=== PATIENT | female | born 1955 | race African-American/Black ===

== ENCOUNTER 2017-02-03 23:12 | Emergency (ER) | payer OTHER ==
--- NOTE | ~2017-02-03 | EKG ---
PATIENT: REX MORENO UNIT #: [id number] Ventricular Rate: 85 BPM Atrial Rate: 85 BPM P-R Interval: 168 ms QRS Duration: 76 ms Q-T Interval: 374 ms QTC Calculation(Bezet): 445 ms P Marion: 47 degrees Calculated R Marion: -10 degrees Calculated T Marion: 53 degrees Diagnosis Line: Normal sinus rhythm Diagnosis Line: Moderate voltage criteria for LVH, may be normal Diagnosis Line: variant Diagnosis Line: Otherwise normal ECG Diagnosis Line: When compared with ECG of 08-MAR-2013 06:11, Diagnosis Line: No significant change was found Diagnosis Line: Confirmed by CRYSTAL HDZ MD ([id number]) on 02/05/2017 Diagnosis Line: 4:04:51 PM INTERPRETING MD: WILDER HERNANDEZ
--- NOTE | ~2017-02-03 | CT71 ---
[facility] A Service of [facility] RADIOLOGY TEXT RESULTS PATIENT: REX MORENO LOCATION: [facility] : 59 UNIT #: [id number] AGE: [address]: Alfie Lamar MD SEX: F ORDER DR: [id number] [facility] [address] [place], [place] [address] [id number] MR#: [id number] Acc #: [id number] NAME: REX MORENO : 1955 SEX: F STUDY DATE/TIME: 02/03/2017 23:37 UNIT: [facility] ROOM: STUDY DESCRIPTION: CT Head Wo Contrast Attending Physician: Alfie Lamar M.D. Ordering Physician: Alfie Lamar M.D. Primary Care Physician: Killian Nair M.D. MEDICAL IMAGING REPORT This report is preliminary unless electronic signature is present EXAM Noncontrast head CT. HISTORY Headaches, left-sided facial pain since this morning, blurred vision. COMPARISON Head CT, 10/06/2015. TECHNIQUE This CT exam was performed with one or more of the following radiation dose reduction techniques: automatic exposure control, adjustment of mA and/or kV according to patient size, and iterative reconstruction. FINDINGS Axial noncontrast imaging of the brain demonstrates the brain parenchyma to be normal. No evidence of mass, mass effect or midline shift. No hemorrhage or abnormal extraaxial fluid collections. Intracranial vascular calcifications are noted within the cavernous carotids. Bony calvaria, skull base, mastoid sinuses unremarkable. IMPRESSION No acute intracranial abnormality identified. No change from head CT 10/06/2015. Dictated by... Arabella Campos M.D. THIS IS AN ELECTRONICALLY VERIFIED REPORT Arabella Campos M.D. at 02/04/2017 10:06 PM LIT/yasmin TD: 02/04/2017 10:57 [facility] A Service [facility] RADIOLOGY TEXT RESULTS PATIENT: REX MORENO LOCATION: [facility] : 59 UNIT #: [id number] AGE: [address]: Alfie Lamar MD SEX: F ORDER DR: JOB #: [id number] MEDICAL IMAGING REPORT Page 1 of 1 COPY
[~2017-02-03 23:12] MED LIST: ACETAMINOPHEN PR; AMOXICILLIN875 MG PO; AURALGAN EAR DR14 ML OT; BACLOFEN10 MG PO; COREG12.5 MG PO; COZAAR100 MG PO; FEMHRT 1/5 TABL1 TAB PO; FERROUS SULFATE PO; HYDROCHLOROTHIA25 MG PO; HYDROXYZINE HCL25 M1 PO; IRON PILLS PO; K-DUR20 ME1 PO; NITROGLYCERIN0.4 MG SL; NORVASC PO; PLAVIX PO; ROBITUSSIN100 MG/51 PO; TAMIFLU75 M1 PO; VOLTAREN75 MG PO; ZITHROMAX1 G/PKT PO
[2017-02-04 00:19] LABS: BASOPHIL% 0.3 % (0-2.5); EOSINOPHIL% 0.3 % (0.0-7.0); HEMATOCRIT 47.5 % (35.0-45.0); HEMOGLOBIN 15.2 gm/dL (12.0-16.0); LYMPHOCYTE# 2.6 X10e3 (1.0-3.5); LYMPHOCYTE% 54.9 % (17.0-45.0); MEAN CELL VOLUME 84.8 FL (83-96); MEAN CORPUSCULAR HEMOGLOBIN 27.1 PG (28-34); MEAN PLATELET VOLUME 9.4 FL (6.5-11.5); MONOCYTE# 0.3 X10e3 (0-1.0); MONOCYTE% 7.2 % (3.0-12.0); NEUTROPHIL# 1.8 X10e3 (1.5-7.1); NEUTROPHIL% 37.3 % (40-75); PLATELET COUNT 157 X10e3 (140-420); RED CELL DISTRIBUTION WIDTH 14.8 % (11.0-15.5); WHITE BLOOD COUNT 4.7 X10e3 (4.0-10.5)
[2017-02-04 00:22] LABS: DIFF IND YES
[2017-02-04 00:33] LABS: ANISOCYTOSIS SL; PLATELET ESTIMATE NORMAL (NORMAL)
[2017-02-04 00:38] LABS: CALCIUM SERUM 9.6 mg/dL (8.4-10.2); GLOM FILT RATE Estimated 71.4 mL/min (>60); POTASSIUM 3.7 mmol/L (3.5-5.1)
== END 2017-02-04 03:42 | disposition home or self-care (01) ==
LOC: CED 23:12
PROVIDERS: Emergency Medicine
DX: E11.65 Type 2 diabetes mellitus with hyperglycemia (principal); I10 Essential (primary) hypertension; Z90.49 Acquired absence of other specified parts of digestive tract; Z88.2 Allergy status to sulfonamides; Z88.6 Allergy status to analgesic agent
CPT/HCPCS: 36415; 70450; 80048; 82947; 85025; 93005; 96361; 96374; 96375; 99284; J1885